=== PATIENT | female | born 1960 | race African-American/Black ===

== ENCOUNTER 2022-12-28 18:15 | Inpatient (IN) | payer MEDICARE, MEDICAID ==
[~2022-12-28] VITALS: Ht 167.6 cm; Wt 85.7 kg
[~2022-12-28 18:15] MED LIST: AMI2 PO; ASPI-1160 PO; CLOP75TA15 PO; DOCU-150 PO; FAMO20TA8 PO; LIP40 PO; METO25TA6 PO
[2022-12-28] MEDS ORDERED: MORPHINE SULFATE 4 MG/ML CPJ (NOT FOR IM USE) IV STA (19:11)
[2022-12-28 20:33] LABS: BASOPHILS % 0.3 % (0.0-2.0); EOSINOPHILS % 0.5 % (0.0-5.0); HEMATOCRIT. 25.7 % (36.0-48.0); HEMOGLOBIN. 8.6 g/dL (12.0-16.0); LYMPHOCYTES % 17.2 % (20.0-50.0); MEAN CORPUSCULAR HEMOGLOBIN 32.7 pg (28.0-32.0); MEAN CORPUSCULAR VOLUME 98.1 fL (81.0-99.0); MEAN PLATELET VOLUME 7.7 fl (7.4-10.4); MONOCYTES % 6.7 % (2.0-8.0); NEUTROPHILS % 75.3 % (40.0-76.0); PLATELET 426 x1000/uL (130-400); RED BLOOD CELL COUNT 2.62 mill/uL (4.2-5.4); RED CELL DISTRIBUTION WIDTH 15.2 % (11.6-14.6)
[2022-12-28 20:45] LABS: CHLORIDE 102 mEq/L (98-107)
[2022-12-28 20:46] LABS: INR 1.1
[2022-12-28] MEDS ORDERED: SODIUM CHLORIDE 0.9% 1,000 ML IV ONE (21:15)
[2022-12-28] MEDS ORDERED: IPRATROPIUM/ALBUTEROL 0.5-3(2.5)MG/3ML NEB HHN PRN (23:15)
[2022-12-28] MEDS ORDERED: CLONIDINE 0.1MG TABLET PO PRN (23:15)
[2022-12-28] MEDS ORDERED: DOCUSATE SODIUM 100MG CAPSULE PO PRN (23:15)
[2022-12-28] MEDS ORDERED: ALBUTEROL (0.083%) 2.5MG/3ML NEB HHN PRN (23:15)
[2022-12-28] MEDS ORDERED: ACETAMINOPHEN 325MG TABLET PO PRN ×2 (23:15)
[2022-12-28] MEDS ORDERED: GUAIFENESIN 200MG/10ML SUGAR FREE UDC PO PRN (23:15)
[2022-12-28] MEDS ORDERED: IPRATROPIUM BROMIDE (0.02%) 0.5MG/2.5ML NEB HHN PRN (23:15)
[2022-12-28] MEDS ORDERED: LORAZEPAM 0.5MG TABLET PO PRN (23:15)
[2022-12-29] MEDS ORDERED: NITROGLYCERIN 0.4MG TABLET SL SL ONE (00:45)
[2022-12-29] MEDS ORDERED: DEXTROSE 50% WATER 50ML SYRINGE IV PRN (00:45)
[2022-12-29] MEDS: ENOXAPARIN 40MG/0.4ML SYR SUBCUT SCH ×2 (00:55→09:40)
[2022-12-29] MEDS: TRAMADOL 50MG TABLET PO PRN ×3 (01:21→18:12)
[2022-12-29] MEDS: ONDANSETRON HCL 4MG/2ML INJ IV PRN ×2 (01:21→18:11)
[2022-12-29] MEDS ORDERED: NITROGLYCERIN 0.4MG TABLET SL SL PRN (06:15)
[2022-12-29] MEDS: INSULIN LISPRO 100 UNITS/ML SUBCUT SCH ×4 (07:00→21:00)
[2022-12-29] MEDS: BLOOD SUGAR DIAGNOSTIC STRIP TEST SCH ×4 (07:46→21:37)
[2022-12-29] MEDS: CLOPIDOGREL 75MG TABLET PO SCH (09:40)
[2022-12-29] MEDS: ASPIRIN 81MG TABLET PO SCH (09:40)
[2022-12-29] MEDS: AMIODARONE HCL 200 MG TABLET PO SCH ×2 (09:40→18:02)
[2022-12-29 13:26] LABS: CREATINE KINASE MB FRACTION 1.8 ng/mL (0.5-3.6)
[2022-12-29 15:52] LABS: CLARITY URINE CLEAR (CLEAR); COLOR URINE YELLOW (YELLOW); KETONES URINE NEGATIVE (NEGATIVE); LEUKOCYTE ESTERASE URINE NEGATIVE (NEGATIVE); NITRITE URINE NEGATIVE (NEGATIVE); OCCULT BLOOD URINE NEGATIVE (NEGATIVE); PH URINE 5.5 (4.5-8.0); PROTEIN URINE 1+ (NEGATIVE); SPECIFIC GRAVITY URINE 1.022 (1.005-1.030)
[2022-12-29 16:00] VITALS: BP 124/80
[2022-12-29] MEDS ORDERED: NALOXONE HCL 0.4MG/ML VIAL IV PRN (16:00)
[2022-12-29 16:04] LABS: *AMPHETAMINES SCREEN URINE NEGATIVE (NEGATIVE); *BARBITURATES SCREEN URINE NEGATIVE (NEGATIVE); *BENZODIAZEPINES SCREEN URINE PRESUMTIVE POSITIVE (NEGATIVE); *COCAINE SCREEN URINE PRESUMTIVE POSITIVE (NEGATIVE); CANNABINOID URINE SCREEN PRESUMTIVE POSITIVE (NEGATIVE); METHADONE URINE SCREEN NEGATIVE (NEGATIVE); OPIATES URINE SCREEN PRESUMTIVE POSITIVE (NEGATIVE); PHENCYCLIDINE URINE SCREEN NEGATIVE (NEGATIVE)
[2022-12-29 16:41] VITALS: BP 117/80
[2022-12-29 18:00] VITALS: BP 116/60
[2022-12-29 20:00] VITALS: BP 94/69
[2022-12-29] MEDS ORDERED: ATORVASTATIN CALCIUM 40MG TABLET PO SCH (21:00)
[2022-12-29 22:13] LABS: CREATINE KINASE MB FRACTION 2.2 ng/mL (0.5-3.6)
[2022-12-30] VITALS: BP 115/65
[2022-12-30] MEDS: TRAMADOL 50MG TABLET PO PRN (00:19)
[2022-12-30] MEDS: ONDANSETRON HCL 4MG/2ML INJ IV PRN ×2 (00:19→09:42)
[2022-12-30 04:00] VITALS: BP 113/72
[2022-12-30 06:52] LABS: BASOPHILS % 0.3 % (0.0-2.0); EOSINOPHILS % 0.6 % (0.0-5.0); HEMATOCRIT. 25.6 % (36.0-48.0); HEMOGLOBIN. 8.4 g/dL (12.0-16.0); LYMPHOCYTES % 15.8 % (20.0-50.0); MEAN CORPUSCULAR HEMOGLOBIN 32.6 pg (28.0-32.0); MEAN CORPUSCULAR VOLUME 98.6 fL (81.0-99.0); MEAN PLATELET VOLUME 7.8 fl (7.4-10.4); MONOCYTES % 7.4 % (2.0-8.0); NEUTROPHILS % 75.9 % (40.0-76.0); PLATELET 386 x1000/uL (130-400); RED BLOOD CELL COUNT 2.59 mill/uL (4.2-5.4); RED CELL DISTRIBUTION WIDTH 17.2 % (11.6-14.6)
[2022-12-30] MEDS: BLOOD SUGAR DIAGNOSTIC STRIP TEST SCH (07:08)
[2022-12-30] MEDS: INSULIN LISPRO 100 UNITS/ML SUBCUT SCH (07:48)
[2022-12-30 08:00] VITALS: BP 100/74
[2022-12-30 08:10] LABS: CHLORIDE 105 mEq/L (98-107)
[2022-12-30 08:19] LABS: PHOSPHORUS 3.3 mg/dL (2.5-4.9)
[2022-12-30 09:00] VITALS: BP 111/56
[2022-12-30] MEDS: ASPIRIN 81MG TABLET PO SCH (09:41)
[2022-12-30] MEDS: CLOPIDOGREL 75MG TABLET PO SCH (09:41)
[2022-12-30] MEDS: AMIODARONE HCL 200 MG TABLET PO SCH (09:41)
[2022-12-30] MEDS: ENOXAPARIN 40MG/0.4ML SYR SUBCUT SCH (09:42)
== END 2022-12-30 12:20 | disposition left against medical advice (07) | DRG 313 ==
LOC: ER 18:15 → MICUSO 21:43 → EDBEDREQTM 23:12 → EDBEDREQ 23:12 → 3WST 12-29 15:45
PROVIDERS: ADMIT Internal Medicine; ATTEND Internal Medicine
DX: R07.9 Chest pain, unspecified (principal); N17.9 Acute kidney failure, unspecified; E11.9 Type 2 diabetes mellitus without complications; I10 Essential (primary) hypertension; I25.10 Atherosclerotic heart disease of native coronary artery without angina pectoris; E78.5 Hyperlipidemia, unspecified; I95.9 Hypotension, unspecified; Z20.822 Contact with and (suspected) exposure to COVID-19; Z53.29 Procedure and treatment not carried out because of patient's decision for other reasons; Z86.718 Personal history of other venous thrombosis and embolism; Z95.1 Presence of aortocoronary bypass graft; Z95.5 Presence of coronary angioplasty implant and graft; Z79.02 Long term (current) use of antithrombotics/antiplatelets; Z79.82 Long term (current) use of aspirin; Z79.899 Other long term (current) drug therapy; Z95.828 Presence of other vascular implants and grafts; Z96.649 Presence of unspecified artificial hip joint; Z98.1 Arthrodesis status; Z86.711 Personal history of pulmonary embolism; I25.2 Old myocardial infarction; Z79.4 Long term (current) use of insulin
CPT/HCPCS: 36415; 71045; 80053; 80305; 81003; 82550; 82553; 82962; 83735; 83880; 84100; 84484; 85025; 87070; 87426; 93970; 94640; 99285; J1650; J1815; J2270; J2405